=== PATIENT | female | born 1980 | race Caucasian/White ===

== ENCOUNTER 2018-11-24 11:47 | Emergency (ER) | payer OTHER ==
[2018-11-24 12:13] VITALS: BP 108/77; PULSE 80; TEMP 98.2; BMI 27.4
[2018-11-24] MEDS ORDERED: diazePAM 5 MG TABLET PO ONE (13:14)
[2018-11-24] MEDS ORDERED: NAPROXEN 500 MG TABLET (FP) PO ONE (13:14)
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
[2018-11-24] MEDS ORDERED: NAPROXEN 500 MG TABLET (FP) ONE (13:32)
[2018-11-24] MEDS ORDERED: diazePAM 5 MG TABLET ONE (13:33)
== END 2018-11-24 15:23 | disposition home or self-care (01) ==
LOC: JERFT 11:47
DX: S16.1XXA Strain of muscle, fascia and tendon at neck level, initial encounter (principal); V43.52XA Car driver injured in collision with other type car in traffic accident, initial encounter; Y92.410 Unspecified street and highway as the place of occurrence of the external cause
CPT/HCPCS: 99281-25